=== PATIENT | female | born 1990 | race Caucasian/White ===

== ENCOUNTER 2018-03-08 11:06 | Emergency (ER) | payer OTHER, SELFPAY ==
[2018-03-08] MEDS ORDERED: NA CHLORIDE 0.9% 1,000 ML ONE ×3 (11:38→15:43)
[2018-03-08] MEDS ORDERED: METOCLOPRAMIDE 10 MG/2mL INJ ONE (11:38)
[2018-03-08 12:10] LABS: Absolute Lymphocytes (CBC) 1.1 K/uL (0.7-4.9); Absolute Monocytes 0.7 K/uL (0.1-1.3); Absolute Neutrophil 15.4 K/uL (1.8-8.0); Basophils % 0.2 % (0-1.3); Hematocrit 38.8 % (36.0-45.0); Lymphocytes % 6.2 % (15.3-44.8); MCH 30.4 pg (27.0-35.0); MCV 90.2 fL (80-100); MPV 10.3 fL (7.6-11.3); Monocytes % 4.3 % (3.3-12.3)
[2018-03-08 12:20] LABS: Bicarbonate 25 mEq/L (21-31); Glucose Level 138 mg/dL (65-120); Lipase 75 U/L (22-51); Potassium 4.1 mEq/L (3.6-5.0)
[2018-03-08 12:26] LABS: ALT/SGPT 31 IU/L (10-60); AST/SGOT 31 IU/L (10-42); Albumin 3.5 g/dL (3.2-5.5); Alkaline Phosphatase 69 IU/L (42-121); Amylase Level 67 U/L (28-100); BUN Blood Urea Nitrogen 6 mg/dL (6-20); Bilirubin Direct 0.1 mg/dL (0-0.2); Bilirubin Total 0.5 mg/dL (0.3-1.2); Protein, Total 7.6 g/dL (6.0-8.3)
--- NOTE | 2018-03-08 12:44 | RAD REPORT ---
EXAM DESCRIPTION: US - Abdomen Exam Limited - 03/08/2018 11:35 am CLINICAL HISTORY: Abdominal pain. COMPARISON: None. FINDINGS: The gallbladder demonstrates multiple shadowing gallstones. No pericholecystic fluid or ga llbladder wall thickening. The common bile duct is normal measuring 4 mm. The liver demonstrates no findings of intrahepatic biliary dilatation. IMPRESSION: Cholelithiasis.
[2018-03-08 15:00] LABS: Urine Blood NEGATIVE (NEG); Urine Glucose NEGATIVE (NEG); Urine Protein 1+ (NEG); Urine Specific Gravity 1.025 (1.005-1.030)
--- NOTE | 2018-03-08 15:43 | ER ---
Nurse's Notes [facility] Name: Ayanna Omalley Age: 28 yrs Sex: Female : 1990 Arrival Date: 03/08/2018 Time: 11:12 Bed 20 Private MD: Diagnosis: Cholelithiasis;Dehydration;20 weeks gestation of ;Elevated white blood cell count;Hypernatremia Presentation: 03/08 11:14 Presenting complaint: Patient states: Upper abdominal pain and N/V x 2 days. Unable to hb tolerate liquids/food. Pt reports she is 19 weeks . Transition of care: patient was not received from another setting of care. Onset of symptoms was March 07, 2018. Initial Sepsis Screen: Does the patient meet any 2 criteria? No. Patient's initial sepsis screen is negative. Does the patient have a suspected source of infection? No. Patient's initial sepsis screen is negative. Care prior to arrival: None. 11:14 Method Of Arrival: Ambulatory hb 11:14 Acuity: DANA 2 hb [facility]: 12:07 LMP 10/26/2017 tw2 Historical: - Allergies: 11:16 PENICILLINS; hb 11:16 Sulfa (Sulfonamide Antibiotics); hb - Immunization history:: Adult Immunizations up to date. - Social history:: Smoking status: Patient/guardian denies using tobacco. Screenin:08 Abuse screen: Denies threats or abuse. Nutritional screening: No deficits noted. tw2 Tuberculosis screening: No symptoms or risk factors identified. Fall Risk None identified. Assessment: 11:33 Reassessment: pt in US at this time. tw2 11:50 General: Appears in no apparent distress. well groomed, Behavior is calm, cooperative, tw2 appropriate for age. Pain: Complains of pain in right upper quadrant. Neuro: Level of Consciousness is awake, alert, obeys commands, Oriented to person, place, time, situation. Cardiovascular: Denies chest pain, shortness of breath, Heart tones S1 S2 Capillary refill < 3 seconds Patient's skin is warm and dry. Respiratory: Airway is patent Respiratory effort is even, unlabored, Respiratory pattern is regular, symmetrical, Breath sounds are clear bilaterally. GI: Bowel sounds present X 4 quads. Abd is soft X 4 quads Reports nausea, vomiting. : No signs and/or symptoms were reported regarding the genitourinary system. EENT: No signs and/or symptoms were reported regarding the EENT system. Derm: No signs and/or symptoms reported regarding the dermatologic system. Musculoskeletal: Range of motion: intact in all extremities. 12:06 Reassessment: Patient appears in no apparent distress at this time. No changes from tw2 previously documented assessment. Patient and/or family updated on plan of care and expected duration. Pain level reassessed. Patient is alert, oriented x 3, equal unlabored respirations, skin warm/dry/pink. 12:56 Reassessment: Patient appears in no apparent distress at this time. No changes from tw2 previously documented assessment. Patient and/or family updated on plan of care and expected duration. Pain level reassessed. Patient is alert, oriented x 3, equal unlabored respirations, skin warm/dry/pink. 13:53 Reassessment: Patient appears in no apparent distress at this time. No changes from tw2 previously documented assessment. Patient and/or family updated on plan of care and expected duration. Pain level reassessed. Patient is alert, oriented x 3, equal unlabored respirations, skin warm/dry/pink. 14:55 Reassessment: Patient appears in no apparent distress at this time. No changes from tw2 previously documented assessment. Patient and/or family updated on plan of care and expected duration. Pain level reassessed. Patient is alert, oriented x 3, equal unlabored respirations, skin warm/dry/pink. 15:37 Reassessment: pt c/o nauseousness, provider notified. Reassessment: Patient appears in tw2 no apparent distress at this time. No changes from previously documented assessment. Patient and/or family updated on plan of care and expected duration. Pain level reassessed. Patient is alert, oriented x 3, equal unlabored respirations, skin warm/dry/pink. 16:47 Reassessment: Patient appears in no apparent distress at this time. No changes from tw2 previously documented assessment. Patient and/or family updated on plan of care and expected duration. Pain level reassessed. Patient is alert, oriented x 3, equal unlabored respirations, skin warm/dry/pink. Patient states feeling better. 17:48 Reassessment: Patient appears in no apparent distress at this time. No changes from tw2 previously documented assessment. Patient and/or family updated on plan of care and expected duration. Pain level reassessed. Patient is alert, oriented x 3, equal unlabored respirations, skin warm/dry/pink. Vital Signs: 11:16 BP 129 / 89; Pulse 131; Resp 16; Temp 98.3; Pulse Ox 100% on R/A; Pain 7/10; hb 12:03 BP 128 / 91; Pulse 109; Resp 17; Pulse Ox 97% on R/A; tw2 12:56 BP 127 / 89; Pulse 96; Resp 17; Pulse Ox 99% on R/A; tw2 13:53 BP 126 / 91; Pulse 96; Resp 17; Pulse Ox 99% on R/A; tw2 14:53 BP 122 / 82; Pulse 96; Resp 17; Pulse Ox 96% on R/A; tw2 15:37 BP 125 / 89; Pulse 101; Resp 17; Pulse Ox 99% on R/A; tw2 16:47 BP 117 / 80; Pulse 110; Resp 18; Pulse Ox 97% on R/A; tw2 17:48 BP 129 / 85; Pulse 108; Resp 17; Pulse Ox 97% on R/A; tw2 Vitals: 12:03 Heart Tones 160 bpm around umbilicus area. tw2 ED Course: 11:12 Patient arrived in ED. mr 11:16 Triage completed. hb 11:16 Blanca Vargas FNP-C is PHCP. kb 11:16 Rafael Colvin MD is Attending Physician. kb 11:17 Arm band placed on right wrist. hb 11:33 Leeanne Rae RN is Primary Nurse. tw2 11:36 US Abdomen Limited In Process Unspecified. EDMS 11:48 Bed in low position. Adult w/ patient. Pulse ox on. NIBP on. tw2 11:55 Inserted saline lock: 20 gauge in right antecubital area, using aseptic technique. tw2 Blood collected. 12:08 Ultrasound completed. aa4 12:57 No provider procedures requiring assistance completed. tw2 15:09 OB Complete In Process Unspecified. EDMS 16:48 transfer. tw2 17:15 Report given to JENY Burdick [facility] Urvashi Singh\T\Nolan. tw2 18:15 Patient transferred, IV remains in place. tw2 Administered Medications: 11:55 Drug: Reglan 10 mg Route: IVP; Site: right antecubital; tw2 12:00 Follow up: Response: No adverse reaction; Nausea is decreased tw2 12:02 Drug: NS 0.9% 1000 ml Route: IV; Rate: 1000 ml; Site: right antecubital; tw2 14:45 Follow up: Response: No adverse reaction; IV Status: Completed infusion; IV Intake: tw2 1000ml 12:38 Drug: NS 0.9% 1000 ml Route: IV; Rate: 1000 ml; Site: right antecubital; tw2 14:10 Follow up: Response: No adverse reaction; IV Status: Completed infusion; IV Intake: tw2 1000ml 15:45 Drug: NS 0.9% 1000 ml Route: IV; Rate: 125 ml/hr; Site: right antecubital; tw2 18:10 Follow up: IV Status: Infusion continued upon transfer tw2 15:50 Drug: Phenergan 12.5 mg Route: IVP; Site: right antecubital; tw2 16:26 Follow up: Response: No adverse reaction; Nausea is decreased tw2 Intake: 14:10 IV: 1000ml; Total: 1000ml. tw2 14:45 IV: 1000ml; Total: 2000ml. tw2 Outcome: 15:42 ER care complete, transfer ordered by . ced 18:15 Transferred by ground EMS to [facility]. tw2 18:15 Condition: stable 18:15 Instructed on the need for transfer. 18:17 Patient left the ED. tw2 Signatures: Dispatcher [employer] EDMS Blanca Vargas, WINTER COILER-Tiana Summers mr Davon Amanda aa4 Crystal Hull RN RN Leeanne Rae RN RN tw2 Corrections: (The following items were deleted from the chart) 15:37 14:53 BP 122 / ???; Pulse 82bpm; Resp 17bpm; Pulse Ox 96% RA; tw2 tw2
--- NOTE | 2018-03-08 15:43 | EDPHYS ---
Physician Documentation [facility] Name: Ayanan Omalley Age: 28 yrs Sex: Female : 1990 Arrival Date: 03/08/2018 Time: 11:12 Bed 20 Private MD: ED Physician Rafael Colvin HPI: 03/08 11:57 This 28 yrs old Female presents to ER via Ambulatory with complaints of kb Abdominal Pain, Vomiting, 19 WKS PG. 11:57 The patient presents with abdominal pain in the right upper quadrant. Onset: The kb symptoms/episode began/occurred yesterday. The symptoms radiate to right back. Associated signs and symptoms: Pertinent positives: nausea and vomiting, Pertinent negatives: anorexia, blood in stools, chest pain, constipation, diarrhea, dysuria, fever, headache, hematuria, palpitations, shortness of breath, vaginal discharge, vomiting blood. The symptoms are described as sharp. Modifying factors: The symptoms are alleviated by nothing, the symptoms are aggravated by pressure. Severity of pain: At its worst the pain was moderate in the emergency department the pain is unchanged. The patient has not experienced similar symptoms in the past. The patient has not recently seen a physician. Pt reports RUQ pain that radiates to the back, nausea and vomiting. States she is unable to tolerate anything PO so her OB told her to come to the ER. Pt reports she is 19 weeks . OB is at [place]. INSTRUCTIONAL SPECIALIST: 12:07 LMP 10/26/2017 tw2 Historical: - Allergies: 11:16 PENICILLINS; hb 11:16 Sulfa (Sulfonamide Antibiotics); hb - Immunization history:: Adult Immunizations up to date. - Social history:: Smoking status: Patient/guardian denies using tobacco. ROS: 11:25 Constitutional: Negative for fever, chills, and weight loss, Cardiovascular: Negative kb for chest pain, palpitations, and edema, Respiratory: Negative for shortness of breath, cough, wheezing, and pleuritic chest pain, Back: Negative for injury and pain, : Negative for injury, bleeding, discharge, and swelling, MS/Extremity: Negative for injury and deformity, Skin: Negative for injury, rash, and discoloration, Neuro: Negative for headache, weakness, numbness, tingling, and seizure. 11:25 Abdomen/GI: Positive for abdominal pain, nausea and vomiting, Negative for diarrhea, constipation, abdominal cramps, abdominal distension, anorexia. Exam: 11:24 Constitutional: This is a well developed, well nourished patient who is awake, alert, kb and in no acute distress. Head/Face: Normocephalic, atraumatic. Chest/axilla: Normal chest wall appearance and motion. Nontender with no deformity. No lesions are appreciated. Cardiovascular: Regular rate and rhythm with a normal S1 and S2. No gallops, murmurs, or rubs. Normal PMI, no JVD. No pulse deficits. Respiratory: Lungs have equal breath sounds bilaterally, clear to auscultation and percussion. No rales, rhonchi or wheezes noted. No increased work of breathing, no retractions or nasal flaring. Back: No spinal tenderness. No costovertebral tenderness. Full range of motion. Skin: Warm, dry with normal turgor. Normal color with no rashes, no lesions, and no evidence of cellulitis. MS/ Extremity: Pulses equal, no cyanosis. Neurovascular intact. Full, normal range of motion. Neuro: Awake and alert, GCS 15, oriented to person, place, time, and situation. Cranial nerves II-XII grossly intact. Motor strength 5/5 in all extremities. Sensory grossly intact. Cerebellar exam normal. Normal gait. 11:24 Abdomen/GI: Inspection: abdomen appears normal, Bowel sounds: normal, in all quadrants, Palpation: soft, in all quadrants, moderate abdominal tenderness, in the right upper quadrant. Vital Signs: 11:16 BP 129 / 89; Pulse 131; Resp 16; Temp 98.3; Pulse Ox 100% on R/A; Pain 7/10; hb 12:03 BP 128 / 91; Pulse 109; Resp 17; Pulse Ox 97% on R/A; tw2 12:56 BP 127 / 89; Pulse 96; Resp 17; Pulse Ox 99% on R/A; tw2 13:53 BP 126 / 91; Pulse 96; Resp 17; Pulse Ox 99% on R/A; tw2 14:53 BP 122 / 82; Pulse 96; Resp 17; Pulse Ox 96% on R/A; tw2 15:37 BP 125 / 89; Pulse 101; Resp 17; Pulse Ox 99% on R/A; tw2 16:47 BP 117 / 80; Pulse 110; Resp 18; Pulse Ox 97% on R/A; tw2 17:48 BP 129 / 85; Pulse 108; Resp 17; Pulse Ox 97% on R/A; tw2 MDM: 11:16 Patient medically screened. kb 11:24 Data reviewed: vital signs, nurses notes. Data interpreted: Pulse oximetry: on room air kb is 100 %. Interpretation: normal. 12:51 ED course: Pt's OB is Patrizia Crain MD at [facility] [place]. kb Attempting to contact for consult for cholelithiasis, dehydration, leukocytosis, and transfer. 12:57 ED course: Spoke with call service for Dr Crain. Dr Crain paged, awaiting call back.kb 14:50 Counseling: I had a detailed discussion with the patient and/or guardian regarding: the kb historical points, exam findings, and any diagnostic results supporting the discharge/admit diagnosis, lab results, radiology results, the need to transfer to another facility, for higher level of care. 15:16 ED course: After multiple calls to [facility], unable to get in kb touch with pt's OB. 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 . 03/08 11:17 Order name: Amylase, Serum kb 03/08 11:17 Order name: Basic Metabolic Panel kb 03/08 11:17 Order name: CBC with Diff; Complete Time: 12:16 kb 03/08 11:17 Order name: Hepatic Function kb 03/08 11:17 Order name: Lipase kb 03/08 14:53 Order name: Urine --Ancillary (enter results); Complete Time: 15:05 kb 03/08 11:17 Order name: US Abdomen Limited; Complete Time: 12:46 kb 03/08 14:53 Order name: Urine Dipstick--Ancillary (enter results); Complete Time: 15:05 kb 03/08 14:56 Order name: OB Complete EDMS 03/08 11:17 Order name: IV Saline Lock; Complete Time: 12:03 kb 03/08 11:17 Order name: Labs collected and sent; Complete Time: 12:03 kb 03/08 11:17 Order name: Urine Dipstick-Ancillary (obtain specimen); Complete Time: 15:38 kb 03/08 11:17 Order name: FHT's; Complete Time: 12:03 kb Administered Medications: 11:55 Drug: Reglan 10 mg Route: IVP; Site: right antecubital; tw2 12:00 Follow up: Response: No adverse reaction; Nausea is decreased tw2 12:02 Drug: NS 0.9% 1000 ml Route: IV; Rate: 1000 ml; Site: right antecubital; tw2 14:45 Follow up: Response: No adverse reaction; IV Status: Completed infusion; IV Intake: tw2 1000ml 12:38 Drug: NS 0.9% 1000 ml Route: IV; Rate: 1000 ml; Site: right antecubital; tw2 14:10 Follow up: Response: No adverse reaction; IV Status: Completed infusion; IV Intake: tw2 1000ml 15:45 Drug: NS 0.9% 1000 ml Route: IV; Rate: 125 ml/hr; Site: right antecubital; tw2 18:10 Follow up: IV Status: Infusion continued upon transfer tw2 15:50 Drug: Phenergan 12.5 mg Route: IVP; Site: right antecubital; tw2 16:26 Follow up: Response: No adverse reaction; Nausea is decreased tw2 Disposition: 03/09 08:56 Co-signature as Attending Physician, Rafael Colvin MD I agree with the assessment and tyler plan of care. Disposition: 03/08/18 15:42 Transfer ordered to [facility]. Diagnosis are Cholelithiasis, Dehydration, 20 weeks gestation of , Elevated white blood cell count, Hypernatremia. - Reason for transfer: Higher level of care. - Accepting physician is [facility] OB - [facility]. - Condition is Stable. - Problem is new. - Symptoms are unchanged. Signatures: Dispatcher [employer] [facility] Blanca Vargas, ZACHERY-C ZACHERY-Rafael Gillette MD MD cha Baxter, Heather, RN RN Leeanne Rae RN RN tw2 Corrections: (The following items were deleted from the chart) 03/08 14:56 14:53 OB Limited+[email or web address].RAD.BRZ ordered. [facility] 15:44 15:42 03/08/2018 15:42 Transfer ordered to [facility]. Diagnosis is Cholelithiasis; kb Dehydration; 20 weeks gestation of ; Elevated white blood cell count; Hypernatremia. Reason for transfer: Higher level of care. Accepting physician is [facility] OB. Condition is Stable. Problem is new. Symptoms are unchanged. kb 18:17 15:44 03/08/2018 15:42 Transfer ordered to [facility]. Diagnosis is Cholelithiasis; tw2 Dehydration; 20 weeks gestation of ; Elevated white blood cell count; Hypernatremia. Reason for transfer: Higher level of care. Accepting physician is [facility] MORTEZA Parra. Condition is Stable. Problem is new. Symptoms are unchanged. kb
[2018-03-08] MEDS ORDERED: PROMETHAZINE 25 MG/ML VIAL ONE (15:47)
--- NOTE | 2018-03-08 19:08 | RAD REPORT ---
EXAM DESCRIPTION: US - OB Complete - 03/08/2018 3:10 pm CLINICAL HISTORY: with abdominal pain. COMPARISON: None. FINDINGS: A single live intrauterine is in cephalic presentation. Amniotic fluid is within normal limits. Cardiac activity 159 BPM. The placenta is anterior. The evaluation of the cervix was limited. BPD 4.7 centimeters 20 weeks 1 day HC 18 centimeters 20 weeks 3 days AC 14.4 centimeters 19 weeks 5 days FL 3 centimeters 19 weeks 2 days. Estimated weight 303 grams +/- 45 grams. A survey was requested as this was an emergent exam to assess age If clinically indicated a routine outpatient survey could be performed. IMPRESSION: 1. Single live intrauterine in cephalic presentation. 2. The estimated gestational age 20 weeks 0 days DENG 07/26/2018. 3. Normal amniotic fluid.
[2018-03-08 23:38] LABS: Sodium Level 138 mEq/L (135-145)
== END 2018-03-08 18:17 | disposition short-term general hospital (02) ==
LOC: ER 11:06
DX: O99.612 Diseases of the digestive system complicating pregnancy, second trimester (principal); K80.20 Calculus of gallbladder without cholecystitis without obstruction; E87.0 Hyperosmolality and hypernatremia; Z3A.20 20 weeks gestation of pregnancy; E86.0 Dehydration; D72.829 Elevated white blood cell count, unspecified; Z88.0 Allergy status to penicillin; Z88.2 Allergy status to sulfonamides
CPT/HCPCS: 36415; 76705; 76805; 80048; 80076; 81003; 81025; 82150; 83690; 85025; 96361; 96374; 96375; 99285; J2550; J2765; J7030